=== PATIENT | female | born 2000 | race Caucasian/White ===

== ENCOUNTER 2022-01-02 14:02 | Emergency (ER) | payer BC ==
[~2022-01-02] VITALS: Ht 162.6 cm; Wt 56.8 kg
[2022-01-02 14:10] VITALS: TEMP 98.2
[2022-01-02] MEDS ORDERED: HAILEY 24 FE 11 EACH PO (14:13)
[2022-01-02 15:15] LABS: COLLECTION METHOD CLEAN CATCH
[2022-01-02 15:19] LABS: BASO % 0.5 % (0.0-2.0); EOS # 0.1 K/mm3 (0.0-0.7); EOS % 0.8 % (0.0-4.0); GRAN % 78.7 % (42.2-75.2); HEMOGLOBIN 11.8 g/dl (12.0-15.0); LYMPH % 13.7 % (20.0-51.0); MEAN CELL VOLUME 85 fl (80.0-95.0); MEAN CORPUSCULAR HEMOGLOBIN 29 pg (26-32); MEAN CORPUSCULAR HGB CONC 34 g/dl (33.0-37.0); MEAN PLATELET VOLUME 8.4 fl (7.4-10.4); MONO # 0.5 K/mm3 (0.1-0.6); MONO % 6.2 % (1.7-9.3); PLATELET COUNT 326 K/mm3 (130-400); RED BLOOD COUNT 4.13 M/mm3 (4.10-5.30); REDCELL DISTRIBUTION WIDTH-CV 12.5 % (11.5-14.5)
[2022-01-02 15:21] LABS: HEMATOCRIT 35.2 % (35.0-45.0)
[2022-01-02 15:27] LABS: SQUAMOUS EPITHELIAL 0-2 /hpf (0-10); URINE BACTERIA None Seen /hpf (NONE SEEN)
[2022-01-02 15:28] LABS: URINE APPEARANCE Clear (CLEAR/HAZY); URINE COLOR Yellow (YELLOW)
[2022-01-02 15:29] LABS: URINE BLOOD 2+ (NEGATIVE); URINE GLUCOSE Negative (NEGATIVE); URINE KETONE Negative (NEGATIVE); URINE NITRATE Negative (NEGATIVE); URINE PROTEIN(semi-quant) Negative (NEGATIVE); URINE UROBILINOGEN 0.2 E.U/dL (0.2-1.0)
[2022-01-02 15:36] LABS: ALBUMIN 3.4 gm/dL (3.5-5.0); BILIRUBIN,TOTAL 0.3 mg/dL (0.2-1.2); CALCIUM 9.1 mg/dL (8.4-10.2); CREATININE, serum 0.73 mg/dL (0.57-1.11); POTASSIUM 3.6 mmol/L (3.5-4.5); TOTAL PROTEIN 6.8 gm/dL (6.2-8.1)
[2022-01-02 16:50] VITALS: BP 108/73; PULSE 86
[2022-01-03] MEDS ORDERED: DOXYCYCLINE 10100 MG PO (09:30)
== END 2022-01-02 16:53 | disposition home or self-care (01) ==
LOC: COL.ER 14:02
PROVIDERS: Nurse Practitioner
DX: R10.84 Generalized abdominal pain (principal); Z32.02 Encounter for pregnancy test, result negative